=== PATIENT | male | born 1960 | race Caucasian/White ===

== ENCOUNTER 2018-12-31 11:15 | Outpatient (REF) | payer BC, SELFPAY | END 2018-12-31 11:35 | LOC: NCHCN 11:15 | PROVIDERS: PCP Nurse Practitioner Family; Visit Provider Specialist/Technologist Athletic Trainer | DX: R21 Rash and other nonspecific skin eruption (principal) | CPT/HCPCS: 87077; 87070; 87186; 87205 ==

== ENCOUNTER 2019-01-12 16:27 | Emergency (ER) | payer BC, SELFPAY ==
[2019-01-12 16:30] VITALS: BP 123/80; PULSE 64; RESP 16; TEMP 36.9; O2SAT 96
--- NOTE | 2019-01-12 16:45 | ED.GENADUL_ITS ---
Discharge Plan Disposition Patient Disposition: HOME Condition: Improving Discharge Details Chief Complaint: RashLesion Clinical Impression: Allergic contact dermatitis due to plant Primary Care Provider: Oly Chavis ED Provider: Earnest Barba Home Meds and New Rx's Prescriptions: New sulfamethoxazole-trimethoprim [Bactrim DS] 800-160 mg tablet 1 tab PO BID 7 Days Qty: 14 RF: 0 ranitidine HCl 150 mg capsule 150 mg PO BID Qty: 20 RF: 0 prednisone 10 mg tablet 10 mg PO DAILY Qty: 60 RF: 0 mupirocin 2 % ointment 1 applic TP BID Qty: 30 RF: 0 No Action celecoxib [Celebrex] 200 mg Capsule 200 mg PO QAM RF: 0 Discharge Instructions Instructions: Dermatitis (ED) Additional Instructions: We will ask our care management team to arrange a follow-up appointment in dermatology. Please apply Bactroban ointment twice daily as we discussed. After work, gentle soap and water cleanse and air dry until reapplying ointment at bedtime. Take antibiotics as prescribed. I do recommend that you take a once daily probiotic while on ongoing antibiotics. Zantac as prescribed for his antihistamine properties and take the prednisone taper as prescribed. May apply cool compress to reduce itching. Try not to itch the areas. Return if you develop a fever or any other acute concern Medical Decision Making 58yo male presents with 3 weeks of left leg pruritic rash. He was placed on a prednisone taper and Keflex with minimal improvement Cultures were obtained with Staph Aureus, nearly pansensitive with the exception of erythromycin. He is afebrile with a pulse in the 60s, blood pressure 123/80. I think this is consistent with an infected plant dermatitis, now growing staph aureus. I will treat with topical Bactroban and oral course of Bactrim. He does have persistent dermatitis and will benefit from further oral steroids as well as Zantac twice daily for its antihistamine properties. We will place him on the follow-up list for a dermatology follow-up in approximately 3 to 4 weeks time. HPI General Mode of arrival: ambulatory . Date/Time Provider Initiated Documentation: 01/12/19 16:35 . Limitations to Documentation: no limitations . Information obtained by: patient . History of Present Illness 58 year old M presents to the emergency department with the chief complaint of Left leg rash times weeks, described as moderate, Quality is described as dull, and is localized to the left. Patient reports no radiation. Patient started experiencing this week(s) and it has been constant. No relieving factors improve symptom(s), No exacerbating factors reported . Patient notes other (Itch pain); denies fever/chills. Patient did receive the following treatments prior to arrival, other (Prednisone taper and Keflex, cultures obtained) Related Data Home Medications Medication Instructions Recorded Confirmed celecoxib [Celebrex] 200 mg PO QAM 01/12/19 01/12/19 mupirocin 1 applic TP BID #30 gm 01/12/19 prednisone 10 mg PO DAILY #60 tab 01/12/19 ranitidine HCl 150 mg PO BID #20 cap 01/12/19 sulfamethoxazole-trimethoprim 1 tab PO BID 7 Days #14 tab 01/12/19 [Bactrim DS] Previous Rx's Medication Instructions Recorded mupirocin 1 applic TP BID #30 gm 01/12/19 prednisone 10 mg PO DAILY #60 tab 01/12/19 ranitidine HCl 150 mg PO BID #20 cap 01/12/19 sulfamethoxazole-trimethoprim 1 tab PO BID 7 Days #14 tab 01/12/19 [Bactrim DS] Allergies Allergy/AdvReac Type Severity Reaction Status Date / Time No Known Allergies Allergy Unverified 01/12/19 16:37 General Stated Complaint: RashLesion CORINE: 3 Review of Systems Review of Systems No fever, chills, nausea, weakness. Denies constitutional symptoms. Complains primarily of swelling and itching. Sick systems reviewed and otherwise - Exam Narrative Exam Narrative: GEN: awake, alert, oriented 3. Pleasant, well groomed, interactive. HEAD: Normocephalic, atraumatic ENT: Mucous membranes moist, oropharynx unremarkable, External ear exam unremarkable EYES: PERRL, EOMI NECK: Full ROM, no CONNOR, no menigismus CHEST/RESP: Nontender, clear to auscultation bilateral, no wheeze/rhonchi/rales CARDIOVASCULAR: RRR, no murmur, rub teressa. 2+ Rad pulse bilateral ABDOMEN: Soft, nontender, no mass. +Bowel sounds EXT: Full ROM, left leg with posterior, large raised plaques measuring approximately 10 x 20 cm x 3 of the leg. They are cracked and oozing clear fluid. No fluctuance. Not particularly tender. Neuro: Grossly normal neurologic exam, conversant, interactive. Psych: Speech fluent, thoughts congruent, affect normal Course Vital Signs Temperature 36.9 C 01/12/19 16:30 Pulse 64 01/12/19 16:30 Respiratory Rate 16 01/12/19 16:30 Blood Pressure 123/80 01/12/19 16:30 Pulse Oximetry 96 01/12/19 16:30 Temperature 36.9 C 01/12/19 16:30 Temperature Source Skin 01/12/19 16:30 Pulse 64 01/12/19 16:30 Respiratory Rate 16 01/12/19 16:30 Blood Pressure 123/80 01/12/19 16:30 Blood Pressure Position Sitting 01/12/19 16:30 Pulse Oximetry 96 01/12/19 16:30 Oxygen Delivery Method Room Air 01/12/19 16:30 Oxygen Flow Rate 0 01/12/19 16:30 Pain Level 6 01/12/19 16:30
--- NOTE | 2019-01-16 09:28 | NUR.NOTE ---
Nursing Note: Appt. made for patient with dermatology; Dr. Holbrook in [place], [place] as patient requested. Appt. is for Apr.10 @ 8:15am. Patient is aware that he will cancel appt. if he gets better. Faxed to Dr. Yusef BRIONES note, wound culture, PCP notes regarding this problem. Yesenia Holbrook, [place], [place] phone [phone] / fax [phone]
== END 2019-01-12 17:28 | disposition home or self-care (01) ==
PROVIDERS: Emergency Provider Emergency Medicine; PCP Nurse Practitioner Family
DX: L23.7 Allergic contact dermatitis due to plants, except food (principal); B95.61 Methicillin susceptible Staphylococcus aureus infection as the cause of diseases classified elsewhere
CPT/HCPCS: 99283

== ENCOUNTER 2020-07-18 12:51 | Outpatient (REF) | payer BC, SELFPAY ==
[2020-07-18 21:49] LABS: ALT 37 U/L (16-63); AST 21 U/L (15-37); Albumin 4.1 g/dL (3.4-5.0); Alkaline Phosphatase 66 U/L (46-116); Anion Gap 7.1 mmol/L (3-11); BUN 16 mg/dL (7-18); Bilirubin, Total 0.7 mg/dL (0.2-1.0); CO2 28.9 mmol/L (21.0-32.0); CREATININE 0.92 mg/dL (0.70-1.30); Calculated LDL 129 mg/dL (<100); Chloride 105 mmol/L (98-107); Cholesterol 189 mg/dL (<200); Glucose 105 mg/dL (74-106); HDL Cholesterol 52 mg/dL (40-60); Potassium 4.1 mmol/L (3.5-5.1); Sodium 141 mmol/L (136-145); Total Protein 7.1 g/dL (6.4-8.2); Triglyceride 40 mg/dL (<150)
[2020-07-18 21:57] LABS: Hemoglobin A1C 5.2 % (<5.7)
[2020-07-19 17:43] LABS: PSA, Screening 0.8 ng/mL (0.0-3.5)
== END 2020-07-18 13:11 ==
LOC: NCHCN 12:51
PROVIDERS: PCP Nurse Practitioner Family; Visit Provider Family Medicine
DX: E66.9 Obesity, unspecified (principal); Z13.1 Encounter for screening for diabetes mellitus; Z83.3 Family history of diabetes mellitus; Z13.220 Encounter for screening for lipoid disorders; Z12.5 Encounter for screening for malignant neoplasm of prostate
CPT/HCPCS: 80053; 80061; 84153; 83036

== ENCOUNTER 2023-02-01 16:38 | Outpatient (REF) | payer OTHER, SELFPAY ==
[2023-02-01 21:17] LABS: ALT 33 U/L (16-63); AST 25 U/L (15-37); Alkaline Phosphatase 83 U/L (46-116); BUN 18 mg/dL (7-18); Bilirubin, Total 0.3 mg/dL (0.2-1.0); CREATININE 1.1 mg/dL (0.70-1.30); Calculated LDL 126 mg/dL (<100); Chloride 106 mmol/L (98-107); Cholesterol 195 mg/dL (<200); Estimated GFR 76.37 (mL/min/1.73m2); Glucose 99 mg/dL (74-106); HDL Cholesterol 45 mg/dL (40-60); Potassium 4.1 mmol/L (3.5-5.1); Sodium 143 mmol/L (136-145); Total Protein 7.4 g/dL (6.4-8.2); Triglyceride 122 mg/dL (<150)
== END 2023-02-01 16:39 | disposition home or self-care (01) ==
LOC: NCHCN 16:38
PROVIDERS: PCP Nurse Practitioner Family; Visit Provider Family Medicine
DX: M54.16 Radiculopathy, lumbar region (principal)
CPT/HCPCS: 80053; 80061

== ENCOUNTER 2024-08-03 15:51 | Outpatient (CLI) | payer BC, SELFPAY ==
--- NOTE | 2024-08-03 13:45 | DI.RAD_ITS ---
Exam(s) XR HIP PELVIS ADULT BL EXAM: XR HIP PELVIS ADULT BL CLINICAL HISTORY: bilateral knee pain. TECHNIQUE: 2D digital imaging was performed. Three views. COMPARISON: No exams were available for comparison FINDINGS: BONES: No acute fracture is present. No bony destructive lesion is seen. Advanced degenerative esteban ges present in the lower lumbar spine. JOINTS: No dislocation present. The hip joint spaces are maintained. There is mild acetabular spurri ng. Mild spurring at the greater trochanters. The SI joints show mild degenerative changes. The pu bic symphysis is unremarkable. SOFT TISSUE: Normal. IMPRESSION: Mild degenerative changes of both hips. DATA REPOSITORY: RADIATION DOSE DELIVERED:
--- NOTE | 2024-08-03 14:00 | DI.RAD_ITS ---
Exam(s) XR KNEE LT 4V AP,LAT,JASON,PAT XR KNEE RT 4V AP,LAT,JASON,PAT EXAM: XR KNEE LT 4V AP,LAT,JASON,PAT CLINICAL HISTORY: LEFT KNEE PAIN. TECHNIQUE: 2D digital imaging was performed. Three views of both knees. COMPARISON: CR XR KNEE RT 4V AP,LAT,JASON,PAT from 08/03/2024 FINDINGS: BONES: No acute fracture is present. No bony destructive lesion is seen. JOINTS: The knee is normally aligned. The joint spaces are maintained. There is minimal periarticul ar spurring. No joint effusion is seen. SOFT TISSUE: Normal. IMPRESSION: Minimal degenerative changes of both knees. DATA REPOSITORY: RADIATION DOSE DELIVERED:
== END 2024-08-03 15:52 | disposition home or self-care (01) ==
LOC: DIORS 15:51
PROVIDERS: PCP Nurse Practitioner Family; Visit Provider Physician Assistant
DX: M25.561 Pain in right knee (principal); M25.562 Pain in left knee; M16.0 Bilateral primary osteoarthritis of hip
CPT/HCPCS: 73521; 73564